=== PATIENT | male | born 1975 | race Caucasian/White ===

== ENCOUNTER 2019-03-30 01:43 | Emergency (ER) | payer SELFPAY ==
[~2019-03-30] VITALS: Ht 177.8 cm; Wt 95.3 kg
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
[2019-03-30] MEDS ORDERED: LACTATED RINGERS 1,000 ML IV ONE (01:47)
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
[2019-03-30] MEDS ORDERED: TETANUS,DIPTH,PERTUSS P/F (BOOSTRIX) 0.5 ML VIAL IM ONE (02:00)
--- NOTE | 2019-03-30 02:10 | NUR ---
PT TO CT VIA CART ACCOMPANIED BY CT/RN/SECURITY.
[2019-03-30 02:17] LABS: HEMOGLOBIN 14.2 G/DL (13.3-17.7); MEAN PLATELET VOLUME 9.8 FL (7.4-10.4); RED CELL DISTRIBUTION WIDTH 11.9 % (10.0-14.5)
--- NOTE | 2019-03-30 02:25 | NUR ---
PT BACK FROM CT, PT REFUSED TO COMPLETE ALL ORDERED CT/RAD EXAMS. CONTINUES TO BE BELIGERENT/UNCOOPERATIVE ET. CURSE AT STAFF.
[2019-03-30 02:35] LABS: FIBRIN DEGRADATION PRODUCTS 0.86 UG/ML (0.00-0.49); INR 1.1 (0.8-1.4); PROTHROMBIN TIME PATIENT 14.1 SEC (12.2-14.7)
[2019-03-30 02:36] LABS: ALANINE AMINOTRANSFERASE 33 U/L (0-55); ALBUMIN 4.1 GM/DL (3.2-4.5); ALKALINE PHOSPHATASE 63 U/L (40-136); BILIRUBIN,DIRECT 0.1 MG/DL (0.0-0.3); BILIRUBIN,INDIRECT 0.1 MG/DL; BILIRUBIN,TOTAL 0.2 MG/DL (0.1-1.0); BUN/CREATININE RATIO 14; CALCIUM 8.8 MG/DL (8.5-10.1); CARBON DIOXIDE 21 MMOL/L (21-32); CHLORIDE 106 MMOL/L (98-107); CREATINE KINASE 347 U/L (30-200); CREATININE SERUM 1.11 MG/DL (0.60-1.30); GFR ESTIMATED > 60; GLUCOSE 111 MG/DL (70-105); MAGNESIUM 2.2 MG/DL (1.6-2.4); PHOSPHORUS 3.2 MG/DL (2.3-4.7); POTASSIUM 3.4 MMOL/L (3.6-5.0); SODIUM 140 MMOL/L (135-145); TOTAL PROTEIN 7.3 GM/DL (6.4-8.2)
[2019-03-30 03:00] LABS: BILIRUBIN,URINE NEGATIVE (NEGATIVE); CLARITY,URINE CLEAR; COLOR,URINE YELLOW; GLUCOSE, URINE (UA) NEGATIVE (NEGATIVE); KETONES,URINE NEGATIVE (NEGATIVE); LEUKOCYTE ESTERASE ,URINE 1+ (NEGATIVE); NITRITE,URINE NEGATIVE (NEGATIVE); PH,URINE 6.5 (5-9); PROTEIN,URINE NEGATIVE (NEGATIVE); UROBILINOGEN,URINE NORMAL (NORMAL)
[2019-03-30 03:02] VITALS: BP 104/62
[2019-03-30] MEDS ORDERED: ACETAMINOPHEN 500 MG TAB (TYLENOL) PO ONE (03:15)
--- NOTE | 2019-03-30 03:15 | NUR ---
DR CANAS DISCUSSING NEED FOR ADMISSION/OBSERVATION, PT REFUSING, BELIGERENT. SECURITY AT BEDSIDE.
[2019-03-30 03:24] LABS: BACTERIA,URINE NEGATIVE /HPF; SQUAMOUS EPITHELIAL CELL,UR RARE /HPF
[2019-03-30 03:25] LABS: AMPHETAMINE SCREEN, URINE NEGATIVE (NEGATIVE); BARBITURATE SCREEN URINE NEGATIVE (NEGATIVE); BENZODIAZEPINES SCREEN URINE NEGATIVE (NEGATIVE); CANNABINOID SCREEN, URINE NEGATIVE (NEGATIVE); COCAINE SCREEN URINE NEGATIVE (NEGATIVE); METHADONE STAT NEGATIVE (NEGATIVE); METHAMPHETAMINE SCREEN URINE S NEGATIVE (NEGATIVE); OPIATE SCREEN URINE NEGATIVE (NEGATIVE); OXYCODONE STAT NEGATIVE (NEGATIVE); PROPOXYPHENE STAT NEGATIVE (NEGATIVE); TRICYCLIC ANTIDEPRESSANTS SCRE NEGATIVE (NEGATIVE)
--- NOTE | 2019-03-30 03:36 | NUR ---
IV SITE DC'D, C-COLLAR REMOVED BY PT. PT REFUSED TO STAY IN HOSPITAL, REFUSED TO SIGN AMA PAPERWORK FOR RETAIL CLERK. ESCORTED TO WAITING ROOM BY SECURITY. [facility] CALLED ABOUT PT.
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
== END 2019-03-30 03:49 | disposition left against medical advice (07) ==
LOC: ER 01:45
DX: S00.81XA Abrasion of other part of head, initial encounter (principal); R40.2142 Coma scale, eyes open, spontaneous, at arrival to emergency department; V29.60XA Unspecified motorcycle rider injured in collision with unspecified motor vehicles in traffic accident, initial encounter
CPT/HCPCS: 36415; 70450; 70486; 72125; 72128; 72131; 80048; 80076; 80306; 80320; 81000; 82550; 83605; 83735; 84100; 84484; 85027; 85379; 85384; 85610; 85730; 86850; 86900; 86901; 86920; 90471; 90715; 93041; 94760; 96360